=== PATIENT | female | born 1955 | race Caucasian/White ===

== ENCOUNTER 2020-10-27 13:59 | Emergency (ER) | payer OTHER ==
[~2020-10-27] VITALS: Ht 170.2 cm; Wt 61.2 kg
[~2020-10-27 13:59] MED LIST: XANAX 0.5 MG0.5 MG PO
[2020-10-27] MEDS ORDERED: ZANAFLEX4 MG PO (15:06)
[2020-10-27] MEDS ORDERED: MOBIC7.5 MG PO (15:06)
[2020-10-27] MEDS ORDERED: MEDROLDOSEPACK PO (15:06)
[2020-10-27 15:25] VITALS: BP 153/114
== END 2020-10-27 15:25 | disposition home or self-care (01) ==
LOC: ER 13:59
DX: S39.012A Strain of muscle, fascia and tendon of lower back, initial encounter (principal); Z98.51 Tubal ligation status; Z98.890 Other specified postprocedural states; Z88.0 Allergy status to penicillin; Z72.89 Other problems related to lifestyle; X50.1XXA Overexertion from prolonged static or awkward postures, initial encounter; Y93.89 Activity, other specified; Y92.098 Other place in other non-institutional residence as the place of occurrence of the external cause; Y99.8 Other external cause status